=== PATIENT | female | born 1980 | race African-American/Black ===

== ENCOUNTER 2025-03-07 07:12 | Emergency (ER) | payer BC, MEDICAID, OTHER, SELFPAY ==
--- OUTSIDE RECORDS SUMMARY | 2016-07-05 05:25 | XMS_ITS | Continuity of Care Document ---
[facility] Organization [facility] Address [address] [place] [address] Phone Care Team Providers Care Low Vision Therapist Name Role Phone Julien Elam MD Unavailable Unavailable Allergies, Adverse Reactions, Alerts Substance Reaction Status Criticality No Known Allergies Active No Inform ation Medications Medication Instructions Dosage Effective Dates (start - stop) Status Comments 28 mg iron-800 mcg tablet po q day - Active PreNata 29 mg iron-1 mg chewable tablet chew 1 tablet by oral route every day 1.00 tablet - Active nicotine (polacrilex) 2 mg Gum chew 1 piece of gum by oral route every 2 hours as needed and as directed 2 MG - Active as needed Procedures Procedure Date Prescription Drug, Oral, Non-Chemotherap eutic, NOS OFFICE/OUTPATIENT VISIT, EST Urinalysis, Auto, w/o Scope URINE TEST, BY VISUAL COLOR CO MPARISON METHODS IAAD EIA HEP B SURF AG HEPATITIS C ANTIBODY; HIV-1 Antigen, W/HIV-1 & HIV-2 Antibody, Single Re SYPHILIS TEST; QUALITATIVE (EG, VDRL, RP R, ART) COLLECTION OF VENOUS BLOOD BY VENIPUNCTU RE 1ST COMPRE PREV MED E/M NEW PT 18-39 Apr COLLECTION OF VENOUS BLOOD BY VENIPUNCTU RE INFLUENZA VACCINE, AGE 3YRS+ Advance Directives Directive Yes / No Effective Date File Name No Information Encounters Encounter Description Practice Location Reason(s) For Visit Diagnoses Date Provider Providers Copied on [facility]counter [facility] , [address], [place], [place], [address], tel:[phone] Urgent Care Encounter for screening for infections with a predominantly sexual mode of transmission [address] [facility]. [address], [place], [place], [address] , . tel:[phone] OFFICE/OUTPAT IENT VISIT, EST [facility] , [address], [place], [place], [address], tel:[phone] Urgent Care STI female (chief complaint) Encounter for screening for infections with a predominantly sexual mode of transmission [address] [facility]. [address], [place], [place], [address] , [place]. tel:[phone] Referring Provider: Julien Elam, [address], [place], [address] . tel:[phone] [facility] , [address], [place], [place], [address], tel:[phone] [facility] No Information [address]. [address], [place], [place], [address] , [place]. tel:[phone] 1ST COMPRE PREV MED E/M NEW PT 18-39 [facility] , [address], [place], [place], [address], tel:[phone] [facility] physical exam (chief complaint) sexualy active neds std (chief complaint) Routine Medical ExamSexually transmitted disease counselingNeeds flu shotTobacco abuse counselingRoutine Medical Exam [address]acon. [address], [place], [place], [address] , [place]. tel:[phone] Family History Family Member Type Diagnosis Age At Onset No Information Immunizations Vaccine Date Status Comments Flu (split) (3 yrs or older) administered Source: New Immunization Record Payers Payer name Insurance type Covered republican ID Authoriza tion(s) Medicaid - Medical [id number] Social History Type Description Quantity Date Captured Comments Alcohol Use Details Unknown Caffeine Use Details Unknown Tobacco Use Status No Information Smoking Status No Information Sex Female Chief Complaint And Reason For Visit No Information Reason For Referral Reason For Referral No Information Plan Of Treatment Date Type Action Status Goal H&P. Due on due Goal PAP. Due on due Goal BMP fasting. Due on due Goal Urinalysis. Due on due Goal Urinalysis. Due on due Goal PAP. Due on due Goal H&P. Due on due Goal BMP fasting. Due on due Goal Tobacco cessation counseling completed History Of Present Illness Encounter Date Complaint History Of Prese nt Illness STI female Here desiring ST D testing, denies any symptoms, states had recent negative HIV testing via [facility] about 1-2 months ago (but would like HIV checked again). No vaginal discharge or other concerning symptoms. States one partner only. Functional Status Date Functional Assessmen t No Information Instructions Date Instruction Additional Infor mation No Information Assessments Type Assessment Date assessment Encounter for screen ing for infections with a predominantly sexual mode of transmission Patient Care Teams Name Effective Dates (start - stop) Status Members No Information
[2025-03-07 07:10] VITALS: PULSE 63; RESP 15; O2SAT 100
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
[2025-03-07 07:45] VITALS: BP 84/58; PULSE 70; RESP 18; O2SAT 100
--- NOTE | 2025-03-07 07:46 | PC.NURSE ---
Patient hypotensive MD requesting iv placement and fluids prior to CLAY CARMAN arrival.
--- NOTE | 2025-03-07 07:56 | PC.NURSE ---
Patient not tolerating iv placement- was not holding still for iv attempt, patient yelling no what are you doing to me, will repeat vital signs and continue to warm patient with bare hugger until RAIL TRANSIT OPERATOR arrives
--- NOTE | 2025-03-07 08:46 | PC.NURSE ---
DEVIN COVARRUBIAS at bedside at this time
--- NOTE | 2025-03-07 08:59 | PC.NURSE ---
maren shea and patient advocate at bedside at this time
--- NOTE | 2025-03-07 09:28 | PC.NURSE ---
patient adamantly declining iv access/fluids. patient not staying awake through questioning with RESTAURANT AND BAR MANAGER. patient states that she needs rested up before she talks to them
--- NOTE | 2025-03-07 09:35 | PC.NURSE ---
Spoke with Back Seam Stitcher Megan Frankel at this time, let her know that the patient hasn't consented to sharing information at this time and if the patient constented to sharing information someone would reach out to the psychiatric nurse. phone number to the psychiatric nurse is [phone]
--- OUTSIDE RECORDS SUMMARY | 2025-03-07 10:14 | XMS_ITS | Clinical Summary ---
Author Organization [facility] Address [address] [place] [address] Care Team Providers Care Nuclear Process Engineer Name Role Phone Unknown, Notinfile Primary Care Provider Unavail able Allergies Active Allergy Reactions Criticality Noted Date Comments Mold Hives Medium 08/31/2024 Medications benzocaine (ORAJEL) 10 % mucosal gel Apply to the mouth or throat as needed for mucositis 5.3 g 9 Active DULoxetine 40 mg capsule,delayed release(DR/EC) Take 40 mg by mouth daily 9 Active hydrocortisone 1 % cream Apply to affected area 2 times daily as needed. Do not use for more than 2 weeks. 15 g 0 Active Active Problems No known active problems Medical History Medical History Date Comments Depression Manic bipolar I disorder (HCC) Social History Tobacco Use Types Packs/Day Years Used Date Smoking Tobacco: Every Day Smokeless Tobacco: Never Alcohol Use Standard Drinks/Week Comments Yes 0 (1 standard drink = 0.6 oz pur e alcohol) Personal Safety Answer Date Recorded Have you ever been in or are you currently in a harmful physical or emotional relationship or is someone making you feel afraid or unsafe? Denies 08/31/2024 Comments No Sex and Gender Information Value Date Recorded Sex Assigned at Not on file Legal Sex Female 5:29 AM MOLDING ASSOCIATE Gender Identity Not on file Sexual Orientation Not on file Obstetrics History Last Filed Vital Signs Vital Sign Reading Time Taken Comments Blood Pressure 109/68 08/31/2024 4:17 PM CDT Pulse 112 08/31/2024 4:17 PM CDT Temperature 37.6 C (99.6 F) 08/31/2024 4:17 PM CDT Respiratory Rate 20 08/31/2024 4:17 PM CDT Oxygen Saturation 97% 08/31/2024 4:17 PM CDT Inhaled Oxygen Concentration - - Weight 56.7 kg (125 lb) 07/04/2024 9:35 PM MOLDING ASSOCIATE Height 160 cm (5' 3) 07/04/2024 9:35 PM MOLDING ASSOCIATE Body Mass Index 22.14 07/04/2024 9:35 PM MOLDING ASSOCIATE Plan of Treatment Health Maintenance Due Date Last Done Comments Breast Cancer Screening-Mammogram 1981 Cervical Cancer Screening 1981 Depression Screening 1981 Hepatitis C Screening 1981 Varicella Vaccines (1 of 2 - 13+ 2-dose series) 1994 Hepatitis B Screening 1999 Regular Well Visit/Exam 18-64 1999 Pneumococcal vaccine <65 (1 of 2 - PCV) 2000 HPV Vaccines (1 - 3-dose SCDM series) 2008 DTaP/Tdap/Td Vaccine (2 - Td or Tdap) 06/13/202307/2013 Influenza Vaccine (#1) 2025 Insurance [facility] IDAR Care Teams Nuclear Process Engineer Relationship Specialty Start Date End Date Unknown, Notinfile PCP - General 03/31/19
--- OUTSIDE RECORDS SUMMARY | 2025-03-07 10:14 | XMS_ITS | Clinical Summary ---
Author Organization [facility] Address [address] [place] [address] Care Team Providers Care Riveting Machine Operator Automatic Name Role Phone None, Physician Primary Care Provider Unavailabl e Source Comments [facility],non-owned Affiliates and Associated Physician Practices is amultiple site organization consisting of ambulatory clinics and hospital sitesin [place], [place], [place] and [place]. This disclosure is being madepursuant to the Care Everywhere program and may not contain all information available regarding this patient. Last updated 18.Airseed Allergies No known active allergies Medications * Be aware that medications may not be up to date on this document. Alwaysverify current medications with the patient. No known medications Active Problems Problem Noted Date Diagnosed Date Housing insecurity Social History Tobacco Use Types Packs/Day Years Used Date Smoking Tobacco: Some Days Cigarettes Tobacco Cessation:Ready to Q uit: Not Asked; Counseling Given: Not Answered Comments Unknown Sex and Gender Information Value Date Recorded Sex Assigned at Not on file Legal Sex Female 10:14 PM CDT Gender Identity Not on file Sexual Orientation Not on file Last Filed Vital Signs Vital Sign Reading Time Taken Comments Blood Pressure 119/85 09/05/2024 5:38 AM CDT Pulse 100 09/05/2024 5:38 AM CDT Temperature 35.8 C (96.4 F) 09/05/2024 5:38 AM CDT Respiratory Rate 18 09/05/2024 5:38 AM CDT Oxygen Saturation 97% 09/05/2024 5:38 AM CDT Inhaled Oxygen Concentration - - Weight 48.5 kg (107 lb) 09/05/2024 5:38 AM CDT Height 165.1 cm (5' 5) 09/05/2024 5:38 AM CDT Body Mass Index 17.81 09/05/2024 5:38 AM CDT Plan of Treatment Health Maintenance Due Date Last Done Comments LIPID TESTING 1981 MAMMOGRAM 1981 DTAP/TDAP/TD VACCINES (1 - Tdap) 2000 HEPATITIS B VACCINE (1 of 3 - 19+ 3-dose series) 2000 PNEUMOCOCCAL VACCINE (1 of 2 - PCV) 2000 PAP SMEAR 2002 HPV VACCINE (1 - 3-dose SCDM series) 2008 DEPRESSION SCREENING 06/12/2024 COVID-19 VACCINE (1 - 2023-2 5 season) 2025 INFLUENZA VACCINE (#1) 2025 04/24/2013 ZOSTER VACCINE (1 of 2) 2031 HEPATITIS C SCREENING Completed 09/05/2024 HIV SCREENING Completed 09/05/2024, 05/20/2024 HIB VACCINE Aged Out No longer eligi ble based on patient's age to complete this topic MENINGOCOCCAL (Group B) VACCINE SHARED DECISION-MAKING Aged Out No longer eligible based on patient's age to complete this topic MENINGOCOCCAL GROUPS A/C/Y/W VACCINE Aged Out No longer eligible b ased on patient's age to complete this topic Procedures Procedure Name Priority Date/Time Associated Diagnosis Comments HEPATITIS C AB SCREEN RFLX NAAT QUANT STAT 09/05/2024 6:36 AM CDT HIV-1 HIV-2 ANTIBODY + HIV P24 AG PANEL STAT 09/05/2024 6:36 AM CDT from Last 3 Months or Most Recently Relevant to Health Maintenance Results * HEPATITIS C AB SCREEN RFLX NAAT QUANT (09/05/2024 6:36 AM CDT) Hepatitis C Antibody Non-react roberto carlos Non-reac tive 09/05/2024 7:45 AM CDT [facility] Comment:Hepatitis C Antibody screen indicates no serologic evidence of past or current infection with Hepatitis C Virus. Patients with unexplained liver disease who are immunocompromised or suspected of having acute Hepatitis C infection may benefit from Nucleic Acid Test (JONEL) for Hepatitis C Viral RNA to confirm Hepatitis C status. Blood BLOOD SPECIMEN / Unknown Venipuncture / Unknown 09/05/2024 6:36 AM CDT 09/05/2024 6:51 AM CDT Bryce Cisse MD LAB - CHEMISTRY ORDERABLES Fi nal Result [address] [address], [place] [phone] * HIV-1 HIV-2 ANTIBODY + HIV P24 AG PANEL (09/05/2024 6:36 AM CDT) HIV Antigen/Antibod y 1 & 2 Non-reacti ve Non-react roberto carlos 09/05/2024 7:45 AM CDT [facility] Comment:No Laboratory eviden ce of HIV infection. Blood BLOOD SPECIMEN / Unknown Venipuncture / Unknown 09/05/2024 6:36 AM CDT 09/05/2024 6:51 AM CDT Bryce Cisse MD LAB - CHEMISTRY ORDERABLES Fi nal Result Performing Organization Address [facility] Co de Phone Number [address] [address], [place] [phone] from Last 3 Months or Most Recently Relevant to Health Maintenance Insurance [facility] Care Teams Riveting Machine Operator Automatic Relationship Specialty Start Date End Date None, Physician [address] [place] [address] PCP - General 03/26/24
--- NOTE | 2025-03-07 11:40 | PC.NURSE ---
patient had incontinent episode, states extreme pain with urination.
[2025-03-07] MEDS: HYDROmorphone HCL INJ (*CRX) 1 MG/ML SYR IV PUSH (12:28)
[2025-03-07 12:29] LABS: Hematocrit 34.4 % (37.0-47.0); Hemoglobin 12.0 g/dL (12.0-15.0); Immature Granulocyte Percent A 0.5 % (0-0.5); Lymphocytes Absolute Auto 1.56 K/mm3 (0.9-3.2); Mean Corpuscular HGB Conc 34.9 g/dl (32-36); Mean Corpuscular Hemoglobin 28.5 pg (26-34); Mean Corpuscular Volume 81.7 fl (80-100); Nucleated Red Blood Cells Absolute Auto 0.000 K/mm3 (0.0-0.012); Nucleated Red Blood Cells Perc 0.0 % (0.0-0.2); Platelet Count Result 373 k/mm3 (150-375); Red Blood Count 4.21 M/mm3 (4.2-5.4); White Blood Count 14.9 K/mm3 (4.5-10.0)
[2025-03-07 12:39] LABS: Alanine Aminotransferase 35 U/L (6-35); Albumin Level 3.8 g/dL (3.5-5.1); Alkaline Phosphatase 117 U/L (38-126); Anion Gap 8 mmol/L (4-12); Aspartate Amino Transferase 46 U/L (14-36); Bilirubin,Total 0.5 mg/dL (0.2-1.3); Blood Urea Nitrogen 15 mg/dL (7-17); Calcium 8.4 mg/dL (8.4-10.2); Carbon Dioxide 28 mmol/L (22-30); Chloride 103 mmol/L (98-107); Estimated Glomerular Filt Rate > 60; Glucose 95 mg/dL (65-110); Potassium 3.6 mmol/L (3.4-5.0); Sodium 139 mmol/L (137-145); Total Protein 7.1 g/dL (6.3-8.2)
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
== END 2025-03-07 12:43 | disposition left against medical advice (07) ==
PROVIDERS: Emergency Provider Emergency Medicine
DX: S31.41XA Laceration without foreign body of vagina and vulva, initial encounter (principal); T74.21XA Adult sexual abuse, confirmed, initial encounter; Z53.29 Procedure and treatment not carried out because of patient's decision for other reasons
CPT/HCPCS: 36415; 80053; 82077; 85025; 96374; 99285; J1171